=== PATIENT | female | born 1975 | race Caucasian/White ===

== ENCOUNTER 2019-06-15 06:53 | Observation (INO) ==
--- NOTE | 2019-06-14 14:40 | Anesthesiology Consultation ---
Date of Service June 14, 2019 Assessment & Plan (1) Encounter for pre-operative examination: Chart Review Chart Review: Acceptable Risk for Surgery and Patient NOT seen in Pre Admission Testing Consults Requested none History Surgery Operation Date: 06/15/19 08:00 Proposed Procedures p Pacemaker Upgrade to Biventricular w/Nelson Wilkins DO Height/Weight Height: 5 ft 3 in Weight: 61.235 kg Allergies Allergy/AdvReac Type Severity Reaction Status Date / Time No Known Allergies Allergy Verified 06/14/19 14:29 Medications Home Medications Medication Instructions Recorded Confirmed Last Taken aspirin 81 mg PO QAM 06/14/19 06/14/19 Unknown furosemide [Lasix] 20 mg PO QAM PRN 06/14/19 06/14/19 Unknown Past Medical History Medical History Anxiety Carpal tunnel syndrome on both sides Depression History of complete heart block REQUIRED PACEMAKER Non-ST elevation HI (NSTEMI) Pacemaker COMPLETE HEART BLOCK MEDTRONIC - 06/2009 FOLLOW WITH CARYL GARCIA Smoker Takotsubo cardiomyopathy Past Surgical History Surgical History Hx of cyst of breast Hx of hysterectomy REMOVED ONE OVARY Social History Smoking Status: Current every day smoker tobacco type: cigarettes Smoking cigarettes per day: 1PPD Do You Dip or Chew Tobacco: No Hx Alcohol Use: No Hx Substance Use: Yes substance use type: marijuana Substance Use Type Other:: ADVISED Testing Electrocardiogram Date: 10/08/18 AV dual paced 63 Echocardiogram Date: 10/19/17 EF: 50 Other Findings: + diastolic dysfunction (grade 1) mild TR Stress Test Date: 06/02/19 Type: nuclear Findings: + WNL Resting EF: 65 Rest[address] LV Function: normal
[~2019-06-15 06:53] MED LIST: LR 15ML/HR IV SCH
[2019-06-15] MEDS ORDERED: BUPIVACAINE 0.25% 30 ML VIAL ONE ×2 (07:15→10:37)
[2019-06-15] MEDS ORDERED: LIDOCAINE HCL 1% 20 ML VIAL ONE ×2 (07:15→10:37)
[2019-06-15] MEDS ORDERED: BACITRACIN INJ 50,000 UNIT VIAL ONE (07:17)
[2019-06-15] MEDS ORDERED: MIDAZOLAM HCL 1 MG/ML 2ML VIAL ONE (07:27)
[2019-06-15] MEDS ORDERED: fentaNYL citrate 100 MCG/2 ML VIAL ONE ×2 (07:28→12:54)
[2019-06-15] MEDS ORDERED: CEFAZOLIN 250 MG/ML 1 GM VIAL ONE ×3 (07:34→12:05)
[2019-06-15] MEDS ORDERED: ONDANSETRON INJ 2 MG/ML 2 ML VIAL IV PRN (07:41)
[2019-06-15] MEDS ORDERED: HYDROmorphone INJ 1 MG/ML SYRINGE IV PRN (07:41)
[2019-06-15] MEDS ORDERED: ATROPINE SULFATE 0.1 MG/ML 10ML SYR IV PRN (07:41)
[2019-06-15] MEDS ORDERED: fentaNYL citrate 100 MCG/2 ML VIAL IV PRN (07:41)
[2019-06-15] MEDS ORDERED: ePHEDrine sulfate 50 MG/ML AMP IV PRN (07:41)
--- NOTE | 2019-06-15 07:52 | History & Physical Bridge Note ---
Date of Service June 15, 2019 History & Physical Bridge Note I have examined the patient, reviewed the History & Physical and in the interval since the performance of the History & Physical I have noted the following changes of clinical significance: no changes noted
[2019-06-15] MEDS ORDERED: ePHEDrine sulfate 50 MG/ML AMP ONE (08:44)
[2019-06-15] MEDS ORDERED: SODIUM CHLORIDE 0.9% INJ 10 ML VIAL ONE (08:44)
[2019-06-15] MEDS ORDERED: PROPOFOL IV EMULSION 10 MG/ML 100 ML VIAL IV ONE ×2 (08:45→12:06)
[2019-06-15] MEDS ORDERED: LIDOCAINE HCL 2% 2 ML VIAL/AMP(20MG/ML) INFIL ONE (08:45)
[2019-06-15] MEDS ORDERED: ONDANSETRON INJ 2 MG/ML 2 ML VIAL ONE (08:45)
[2019-06-15] MEDS ORDERED: PROPOFOL IV EMULSION 10 MG/ML 20 ML VIAL IV ONE ×3 (08:45→12:05)
[2019-06-15] MEDS ORDERED: PHENYLEPHRINE HCL 10 MG/ML VIAL ONE (09:00)
[2019-06-15] MEDS ORDERED: ACETAMINOPHEN 325 MG TAB PO PRN (13:35)
[2019-06-15] MEDS ORDERED: FUROSEMIDE 20 MG TAB PO PRN (13:36)
--- NOTE | 2019-06-15 13:37 | Operative Report ---
Post Operative Report Pre & Post Diagnosis Pre: ppm at [facility], CHB, Chronic systolic HF-NYHA Class II Post: Same Operation Date: 06/15/19 08:00 <No data on this case meets the specified criteria> Procedure Operation Date: 06/15/19 08:00 Actual Procedures p Upgrade of any system to BIV - Cecelia Wilkins DO s Relocation Pocket Pacemaker - Cecelia Wilkins DO Surgeon Cecelia Wilkins DO Word Processing Specialist none Estimated Blood Loss 50 Findings Consistent with Post-Op Diagnosis Specimens none Description of Procedure see official report I attest to the content of the Intraoperative Record and any orders documented therein. Any exceptions are noted below.
[2019-06-15] MEDS: OXYCODONE/ACETAMINOPHEN 5mg/325mg TAB PO PRN ×2 (15:41→21:53)
[2019-06-15] MEDS: CEFAZOLIN 2000MG 2,000 MG/15 ML SYR IV SCH (17:06)
[2019-06-15] MEDS: ASPIRIN 81 MG ECTAB PO SCH (17:06)
[2019-06-16] MEDS: CEFAZOLIN 2000MG 2,000 MG/15 ML SYR IV SCH (00:34)
[2019-06-16] MEDS: OXYCODONE/ACETAMINOPHEN 5mg/325mg TAB PO PRN (04:25)
[2019-06-16] MEDS: ASPIRIN 81 MG ECTAB PO SCH (07:55)
--- NOTE | 2019-06-16 07:55 | Anesthesiology Progress Note ---
Date of Service June 16, 2019 Anesthesia Post Procedure Vital Signs Vital Signs: Temp Pulse Pulse Pulse Resp BP Pulse Ox 06/16/19 07:12 37.0 C 76 16 100/62 06/16/19 03:16 36.9 C 77 17 94/63 L 93 06/15/19 23:55 36.9 C 75 16 95/59 L 94 06/15/19 21:45 36.5 C 77 18 107/71 98 06/15/19 18:52 36.5 C 75 18 96/64 L 95 06/15/19 16:20 75 104/70 06/15/19 16:00 75 06/15/19 15:50 76 102/71 06/15/19 15:20 75 91/64 L 06/15/19 15:06 36.4 C L 76 18 82/56 L 100 06/15/19 14:50 75 16 93/64 L 100 06/15/19 14:20 75 16 99/68 L 100 06/15/19 14:00 36.6 C 72 16 109/78 98 06/15/19 13:30 73 15 97/52 L 100 Notes Mental Status: alert / awake / arousable and participated in evaluation Patient Amnestic to Procedure: Yes Nausea / Vomiting: adequately controlled Pain: adequately controlled Airway Patency, RR, SpO2: stable & adequate BP & HR: stable & adequate Hydration State: stable & adequate Anesthetic Complications: no major complications apparent and Pt Satisfied with anesthetic care
--- NOTE | 2019-06-16 08:25 | XRay Report ---
XR chest 1V portable CLINICAL HISTORY: post implant COMPARISON STUDY: No previous studies for comparison. FINDINGS: The heart is normal in size. There is no failure. There is no focal pulmonary consolidation . There are no pleural effusions. There is a 3-lead left subclavian pacemaker. There is no pneumothor ax.[The generator pack is oriented parallel to the left lateral chest wall IMPRESSION: No evidence of pneumothorax status post left-sided pacemaker placement Electronically signed by: Reed Mathew M.D. 06/16/2019 8:23 AM
--- NOTE | 2019-06-17 06:26 | Anesthesiology Progress Note ---
Date of Service June 17, 2019 Anesthesia Post Procedure Vital Signs Vital Signs: Temp Pulse Pulse Resp BP Pulse Ox 06/16/19 09:44 37.0 C 76 76 16 100/62 93 06/16/19 07:12 37.0 C 76 16 100/62 Transfer of Care Handoff Completed per policy Notes Mental Status: alert / awake / arousable and participated in evaluation Patient Amnestic to Procedure: Yes Nausea / Vomiting: adequately controlled Pain: adequately controlled Airway Patency, RR, SpO2: stable & adequate BP & HR: stable & adequate Hydration State: stable & adequate Anesthetic Complications: no major complications apparent and Pt Satisfied with anesthetic care Notes: pt seen in recovery room but note entered later
--- NOTE | 2019-06-20 11:44 | Operative Report ---
DATE OF OPERATION: 06/15/2019 PREOPERATIVE DIAGNOSES: Congenital complete heart block, pacemaker at elective replacement indicator, nonischemic cardiomyopathy, ejection fraction 50%, chronic systolic heart failure, [place] Heart Association class 2 with 100% RV pacing. POSTOPERATIVE DIAGNOSES: Congenital complete heart block, pacemaker at elective replacement indicator, nonischemic cardiomyopathy, ejection fraction 50%, chronic systolic heart failure, [place] Heart Association class 2 with 100% RV pacing. PROCEDURE: Upgrade to a biventricular permanent rate responsive pacemaker where the LV lead is over the His bundle along with peripheral venogram. Electrocardiographic mapping of the His bundle region. SURGEON: Cecelia Wilkins DO ASSISTANTS: None. ANESTHESIA: Moderate anesthetic care administered via anesthesiology, so please refer to their notes for complete details, but we started the procedure at 08:17, ended at 13:29. She got a total of 4 mg of Zofran, 80 mg of lidocaine, 50 mg of ephedrine, 4 mg of Versed, 200 mcg of fentanyl, 2 grams of propofol, 3 mg of Sampson-Synephrine. BLOOD LOSS: 50 mL. IV CONTRAST: 50 mL. ANTIBIOTICS: She got 2 grams of Ancef x2, one before the case and one during the case. COMPLICATIONS: None. CONDITION: Stable. URINE OUTPUT: Not applicable. SPECIMENS: None. FINDINGS: See below. DRAINS: None. INDICATIONS: This is a 43-year-old female who has a past medical history for congenital complete heart block where she underwent a pacemaker where the generator is in her axillary area in 1983. She had a generator change in 2008 and she most recently reached [facility] on 05/04/2019. She also has a history of nonischemic cardiomyopathy, her ejection fraction in 2017 was about 40-44%, maybe in 2018 and improved to about 50%. She had a Takotsubo cardiomyopathy in October 2017 as well where she underwent a cardiac catheterization at [facility]. She had no coronary problems. Her coronary arteries were normal. Congestive heart failure, [place] Heart Association class 2, chronic tobacco use, and probable PAD. Due to her congenital heart block with RV pacing 100% at the time with her worsening decline in EF, she was recommended to consider going upgrade to a biventricular device. CONSENT: Consent was obtained prior to the patient going into electrophysiology lab. The patient was informed of the risks, benefits, and alternatives of the procedure. Risks include but not limited to sudden cardiac , cardiac arrhythmias, cerebrovascular accidents, myocardial infarction, injury to the blood vessels, chamber of the heart, lung, bleeding, and infection. The patient understood these risks and agreed to the procedure as planned. Informed consent was obtained. DESCRIPTION OF THE PROCEDURE: The patient was brought into the electrophysiology lab in a fasting state. She was connected to continuous cardiac monitoring and a timeout was performed to ensure patient identity and procedure correctly. We then performed a peripheral venogram using 10 mL of IV contrast diluted in 10 mL of saline to confirm that the left subclavian venous system was still patent and it was. She then received prophylactic antibiotics prior to incision and she was prepped and draped over the left infraclavicular space and in the left axillary region in normal surgical standard fashion. Monitored anesthetic care was used via anesthesiology for sedation and comfort. Combs precautions were maintained throughout the procedure. A 10 mL of 1% lidocaine, bupivacaine mixture were given in the left deltopectoral groove. Incision was made in left deltopectoral groove. I did perform another peripheral venogram since her arm now is adducted to her shoulder to better identify the axillary vein. The axillary vein access was obtained through a needle stick and a Glidewire was inserted without any resistance. Of note, there was 2 cuts abandoned leads up in her left subclavian venous system as well. I was able to pass the Glidewire without any resistance down into the heart. A 7-Serbian sheath was inserted over that and then 9.5-Serbian sheath was inserted over the guidewire without any resistance. Dilator was removed and the outer MPX sheath was advanced into the right atrium over the guidewire. The guidewire and dilator were removed. Then using the EP diagnostic catheter, I tried to cannulate the coronary sinus; however, I was not successful. I switched out the MPX outer sheath for an extended hook, but I still was not successful, then we opted to set up to do a His bundle, so the coronary sinus stuff was removed and through the 9.5-Serbian sheath, we inserted the His bundle preformed Medtronic sheath into the right atrium over a Glidewire. Then, the Glidewire and dilator were removed. Then, I did electrogram mapping for the His bundle with the lead. We ultimately did find a decent His bundle region with the AH being 600 milliseconds, HV being 58 milliseconds. Of note, the [place] QRS was 78 milliseconds and the paced QRS before the procedure was 121 milliseconds. The lead was then screwed in and the sheath was slid under fluoroscopic guidance. Then, I split the 7-Serbian sheath. Then, I opened up the axillary. I gave more lidocaine to the axillary incision that opened up the area to blunt dissection down to the pulse generator and the pulse generator was removed from the body and then tunneled the His lead from the left pectoral region down into the axillary region; however, then a little bit later on fluoroscopy, we noticed that the His lead had moved and we were not getting successful capturing, so I performed another venogram and got venous access again, then passed a 7-Serbian sheath through that over that wire, and then used the preformed His sheath at a new His lead to remap the His bundle region and then ultimately screw in the lead. The His sheath was then slid under fluoroscopic guidance and the 7-Serbian sheath was then slid and the old lead was removed. I did put a pursestring around the incision site using a 2-[address] needle. I then tunneled the new His lead down into the axillary region and connected it to the new pulse generator along with the 2 old pacing leads, making sure that the pins were in appropriate position, passed set screw and set screws were all tightened. We then flushed the axillary pocket as well as the pocket in the left clavicular area pectoral region with bacitracin saline wash and inspected for hemostasis. Then, the pacemaker was placed back in the axillary pocket making sure that the leads were lying to the line underneath the device against the ribs without any buckling. Of note, I also did a second suture sleeve with the His bundle and the axillary pocket as well as up in the pectoral muscle area. Then, I placed a Tyrx antibiotic pouch into the axillary area where the device is displacing it over. Then, I started closing the axillary incision using 3 layers of 2-[address] needle, followed then by a 3-[address] needle followed by a 4-0 Monocryl running stitch, followed then by Dermabond. I then closed the pectoral area incision using a 2-0 Vicryl on a SH needle interrupted sutures followed by 3-0 Vicryl interrupted sutures followed by a 4-0 Monocryl running stitch and Dermabond was applied followed then by a Tegaderm and a micropore dressing. INTRAOPERATIVE TESTING: The [place] QRS is 78 milliseconds. Her paced QRS before the His lead was 121 milliseconds, the AH was 600 milliseconds, HV was 58 milliseconds and her post-His pacemaker QRS was 70 milliseconds. EQUIPMENT: 1. Explanted generator is a Medtronic Sensia [id number], serial number [id number], voltage 2.62 volts, implanted 06/26/2009. 2. The new device is a Dorothy CRTP MRI SureScan [id number], serial number [id number]. 3. Right atrial lead 4524-53, serial number [id number]. 4. Right ventricular lead 4024-58 cm, serial number [id number], implanted 06/11/1992 as well as the right atrial lead and the new His bundle lead is a Medtronic 3830-69 cm, serial number [id number]. FINAL MEASUREMENTS THROUGH THE DEVICE: 1. Right atrial lead: P waves 2.9 millivolts, impedance 418 ohms, threshold 1 volt at 0.4 milliseconds. 2. Right ventricular lead: R-wave 7.3 millivolts, impedance 513 ohms, threshold 1.25 volts at 0.4 milliseconds. 3. His bundle lead programmed bipolar R waves are 1 millivolt, impedance 510 ohms, threshold 2.75 volts at 1 millisecond. FINAL PARAMETERS: DDD 60/100. Right atrial amplitude 1.75 volts, pulse width 0.4 milliseconds, sensitivity 0.3 millivolts. Right ventricular amplitude 2 volts, pulse width 0.4 milliseconds, sensitivity 0.9 millivolts. Left ventricular amplitude 6 volts, pulse width 1 millisecond, which is actually the His bundle. IMPRESSION: Successful upgrade to a biventricular rate responsive permanent pacemaker with the left ventricular lead over the His bundle region along with peripheral venogram and electrocardiographic mapping of the His bundle region secondary to congenital complete heart block, nonischemic cardiomyopathy, chronic systolic heart failure, [place] Heart Association class #2. PLAN: Monitor patient overnight, 12-lead ECG, chest x-ray. She cannot lift the left elbow or left shoulder for 1 month. She cannot lift more than 10 pounds with the left arm for 2 weeks. She can shower in 2 days, let water run over the incision, do not scrub it. She should follow up in our [place] office for device and wound check in 1 week's time and continue her home medications. I attest to the content of the Intraoperative Record and any orders documented therein. Any exceptions are noted below. ANA
--- NOTE | 2019-06-22 10:46 | Discharge Summary ---
Date of Service June 16, 2019 Admission HPI Per Admitting Provider Pt admitted for upgrade to BiV pacemaker. She underwent procedure without any complications monitored overnight. Admission Exam Per Admitting Provider aaox3, NAD NC/AT, EOMI Supple No JVD Nrl S1/S2, No murmur CTA b/l no w/r/r soft nt/nd no LE edema b/l skin intact no focal deficits Principal Diagnosis CHB and ppm at [facility] s/u upgrade to BiV HIS bundle pacemaker Discharge Exam aaox3, NAD NC/AT, EOMI Supple No JVD Nrl S1/S2, No murmur CTA b/l no w/r/r soft nt/nd no LE edema b/l skin intact no focal deficits left pectoral and axillary incision intact, no hematoma mild ecchymosis Discharge Data Allergies Allergy/AdvReac Type Severity Reaction Status Date / Time No Known Allergies Allergy Verified 06/15/19 07:11 Procedures Performed Operation Date: 06/15/19 08:00 Actual Procedures p Upgrade of any system to BIV - Cecelia Wilkins DO s Relocation Pocket Pacemaker - Cecelia Wilkins DO s Venogram, Unilateral - Cecelia Wilkins DO Ordered Studies ECG: -BiV HIS bundle paced CXR: No PTX, leads in positions Pacemaker Interrogation: Normal lead testing and stable since implant 06/15/19 06:45 EP Lab Images for PACS ONCE Hospital Course (1) CHB (complete heart block): Total Time Total Time Spent Total Time Spent (In Minutes): 30 Total Time Includes: Examination of the Patient, Discharge Planning, Medication Reconciliation and Other Discharge Plan Discharge Items Patient Disposition: Home - Self-Care Reason For Visit: UPGRADE TO HIS PACER / POCKET RELOCATION Discharge Diagnosis: chb upgrade to BiV pacemaker Condition on Discharge: Good Activity: As commented below Activity Comment: do not lift the left elbow over the shoulder for 1 month Lifting: No more than 10 pounds Lifting Comment: do not lift more than 10 pounds with left arm for 2 weeks Bathing: Keep incision dry Bathing Comment: can shower sunday 06/17 let water run over the incision do not scrub it Sexual Activity: After two weeks Non-emergency contact: [place] Call non-emergency contact if: you have any medication questions Follow-up/Referrals: Kaycee Abbasi PA-C [Primary Care Provider] - Diet: Heart Healthy Addtl Attending Provider Instructions: keep close eye on the incision especially the one in the arm pit device and wound check as scheduled next week Jun 23 at 11am Pending Studies at Discharge: No Stand-Alone Forms: My [facility] Medications and DC Order Prescriptions: Continued aspirin 81 mg Tablet,Chewable 81 mg PO QAM RF: 0 furosemide [Lasix] 20 mg Tablet 20 mg PO QAM PRN (Reason: SWELLING ) RF: 0 Discharge Orders: Discharge Order (Routine); Ordered 06/16/19 Ordered By: Cecelia Mott/Other Patient Handouts: Pacemaker Biventricular and ICD, Pacemaker, Impl antation Pacemaker Dc Admission Data Admit Date/Time: 06/15/19 11:28 Attending Provider: Cecelia Wilkins Admit Provider: Cecelia Wilkins Primary Care Provider: Kaycee Abbasi Other Interventions: Discharge Summary Assessment (RN) Last Done: 06/16/19 09:44 DC Date/Time DO NOT enter until pt leaves facility: 06/16/19 10:11
== END 2019-06-16 10:11 | disposition home or self-care (01) ==
LOC: EP 06:53 → 2S 06:53